=== PATIENT | female | born 1950 | race Hispanic/Latino ===

== ENCOUNTER 2018-01-29 14:23 | Emergency (ER) | payer OTHER ==
[2018-01-29 15:09] LABS: BASOPHILS % (AUTO) 0.2 % (0.0-5.0); EOSINOPHILS % (AUTO) 0.1 % (0.0-8.0); HEMATOCRIT 35.3 % (36-48); LYMPHOCYTES % (AUTO) 9.3 % (21.0-51.0); MEAN CORPUSCULAR HEMOGLOBIN 31.6 pg (27.0-33.0); MEAN CORPUSCULAR HGB CONC 34.7 g/dL (32.0-36.0); MEAN CORPUSCULAR VOLUME 91.2 fL (79-99); MONOCYTES % (AUTO) 4.2 % (3.0-13.0); NEUTROPHILS % (AUTO) 86.2 % (40.0-77.0); PLATELET COUNT (AUTO) 238 K/uL (130-400); RED BLOOD CELL COUNT(AUTO) 3.87 MIL/uL (4.00-5.50); RED CELL DISTRIBUTION WIDTH 13.8 % (11.0-15.5); WHITE BLOOD COUNT (AUTO) 19.1 K/uL (4.8-10.8)
[2018-01-29] MEDS ORDERED: SODIUM CHLORIDE 0.9% 1000ML 1,000 ML IV ONE (15:15)
[2018-01-29 15:23] LABS: CREATININE 1.1 mg/dL (0.5-1.5)
[2018-01-29 15:25] LABS: APPEARANCE,URINE SL CLOUDY (CLEAR); BILIRUBIN,URINE SMALL (NEGATIVE); COLOR,URINE YELLOW (YELLOW); GLUCOSE, URINE (UA) NEGATIVE (NEGATIVE); KETONES,URINE 15 mg/dL (NEGATIVE); LEUKOCYTE ESTERASE ,URINE NEGATIVE (NEGATIVE); NITRATE,URINE NEGATIVE (NEGATIVE); OCCULT BLOOD,URINE LARGE (NEGATIVE); PROTEIN,URINE 100 (NEGATIVE); UROBILINOGEN,URINE 0.2 mg/dL (0.2-1.0)
[2018-01-29] MEDS ORDERED: ONDANSETRON HCL 4 MG/2 ML VIAL ONE (15:27)
[2018-01-29 15:44] LABS: BACTERIA,URINE Few /HPF (None Seen); MUCUS,URINE Moderate LPF (None Seen); SQUAMOUS EPITHELIAL CELL,UR Few /HPF (0-2)
== END 2018-01-29 17:24 | disposition home or self-care (01) ==
LOC: EDH 14:23
DX: A08.4 Viral intestinal infection, unspecified (principal); E86.9 Volume depletion, unspecified; I10 Essential (primary) hypertension; Z85.3 Personal history of malignant neoplasm of breast; Z87.891 Personal history of nicotine dependence
CPT/HCPCS: 36415; 71046; 80048; 81001; 83605; 85025; 87804 ×2; 93005; 96361; 96374; 99285; J2405; J7030

== ENCOUNTER 2018-03-09 19:28 | Emergency (ER) | payer OTHER ==
[2018-03-09] MEDS ORDERED: ONDANSETRON ODT 4 MG TAB ONE (20:43)
[2018-03-09] MEDS ORDERED: MORPHINE SULFATE 4 MG/1ML SYG ONE (20:44)
== END 2018-03-09 21:50 | disposition home or self-care (01) ==
LOC: EDH 19:28
DX: F11.23 Opioid dependence with withdrawal (principal); F41.9 Anxiety disorder, unspecified; I10 Essential (primary) hypertension; Z72.0 Tobacco use; Z85.3 Personal history of malignant neoplasm of breast; Z88.8 Allergy status to other drugs, medicaments and biological substances
CPT/HCPCS: 96372; 99283; J2270

== ENCOUNTER 2018-07-22 23:05 | Emergency (ER) | payer OTHER, MEDICARE ==
[2018-07-23] MEDS ORDERED: METOCLOPRAMIDE 10 MG/2 ML VIAL ONE (00:38)
[2018-07-23] MEDS ORDERED: ONDANSETRON HCL 4 MG/2 ML VIAL ONE (00:39)
[2018-07-23] MEDS ORDERED: KETOROLAC TROMETHAMINE 30MG/ML ONE (00:39)
[2018-07-23] MEDS ORDERED: LIDOCAINE PF 2% 5ML ABBOJECT ONE (00:48)
[2018-07-23] MEDS ORDERED: DiphenhydrAMINE HCL 50 MG/ML VIAL ONE ×2 (01:32→02:47)
== END 2018-07-23 03:08 | disposition home or self-care (01) ==
LOC: EDH 23:05
DX: F11.10 Opioid abuse, uncomplicated (principal); E86.9 Volume depletion, unspecified; G89.29 Other chronic pain; R11.2 Nausea with vomiting, unspecified; I10 Essential (primary) hypertension; M79.7 Fibromyalgia; Z85.3 Personal history of malignant neoplasm of breast; Z88.8 Allergy status to other drugs, medicaments and biological substances; Z90.710 Acquired absence of both cervix and uterus; Z98.890 Other specified postprocedural states; Z72.0 Tobacco use
CPT/HCPCS: 96361; 96374; 96375; 96376; 99284; J1200 ×2; J1885; J2001; J2405; J2765

== ENCOUNTER → 2019-10-17 | Outpatient (CLI) | payer MEDICARE, OTHER | END | disposition home or self-care (01) | LOC: SHCH 15:18 | PROVIDERS: ATTEND Internal Medicine Cardiovascular Disease | DX: I10 Essential (primary) hypertension (principal); R07.9 Chest pain, unspecified | CPT/HCPCS: 93306; 93356 ==

== ENCOUNTER → 2019-10-23 | Outpatient (CLI) | payer OTHER ==
[~2019-10-23] VITALS: Ht 157.5 cm; Wt 93.9 kg
[~2019-10-23] MED LIST: REGADENOSON 0.4 MG/5 ML PF SYG IVP SCH
== END | disposition home or self-care (01) ==
LOC: SHCH 08:54
PROVIDERS: ATTEND Internal Medicine Cardiovascular Disease
DX: R07.9 Chest pain, unspecified (principal); I10 Essential (primary) hypertension
CPT/HCPCS: 78452; 93017; A9500 ×2; J2785; 96374

== ENCOUNTER 2022-11-18 00:39 | Emergency (ER) | payer OTHER ==
[~2022-11-18] VITALS: Ht 160 cm; Wt 89.4 kg
[~2022-11-18 00:39] MED LIST changes: +DULO30CA52 PO; +FERR-72 PO; +FOLI0.4T6 PO; +GABA300C PO; +HYDR12.54 PO; +LOSA-418 PO; +ONDA8TAB12 PO; +OXYC20TA41 PO; +PANT40TA PO; -REGADENOSON 0.4 MG/5 ML PF SYG IVP SCH
[2022-11-18 01:58] VITALS: BP 131/65; PULSE 78; RESP 16; O2SAT 98
[2022-11-18] MEDS ORDERED: OXYCODONE HCL 30 MG TABLET PO ONE (02:00)
[2022-11-18] MEDS ORDERED: OXYCODONE HCL 5 MG TAB ONE (02:06)
== END 2022-11-18 02:17 | disposition home or self-care (01) ==
LOC: EDH 00:39
DX: F11.23 Opioid dependence with withdrawal (principal); F41.9 Anxiety disorder, unspecified; F32.A Depression, unspecified; Z79.899 Other long term (current) drug therapy; Z85.3 Personal history of malignant neoplasm of breast

== ENCOUNTER → 2024-04-02 | Outpatient (CLI) | payer OTHER ==
[~2024-04-02] MED LIST changes: +ONDA-245 PO; -ONDA8TAB12 PO
--- NOTE | 2024-04-03 08:12 | HMCSR ---
APPROVED REPORT Bilateral Lower Extremity Venous Study for DVT., Venous Competence. Indications Lower Extremity Pain: , Lower Extremity Edema: , i87.1, i87.2 Vein Imaging CFV (R): Pulsatile flow, augmentation and compression. No evidence of DVT. 16.3mm 0.0ms of reflux. SFJ (R): Pulsatile flow, augmentation and compression. No evidence of DVT. FEM (R): Pulsatile flow, augmentation and compression. No evidence of DVT. POP (R): Pulsatile flow, augmentation and compression. No evidence of DVT. DFV (R): Pulsatile flow, augmentation and compression. No evidence of DVT. PTV (R): Normal flow, augmentation and compression. No evidence of DVT. Peroneals (R): Not VisualizedCFV (L): Pulsatile flow, augmentation and compression. No evidence of D VT. 12.6mm 0.0ms of reflux. SFJ (L): Pulsatile flow, augmentation and compression. No evidence of DVT. FEM (L): Pulsatile flow, augmentation and compression. No evidence of DVT. POP (L): Pulsatile flow, augmentation and compression. No evidence of DVT. DFV (L): Pulsatile flow, augmentation and compression. No evidence of DVT. PTV (L): Normal flow, augmentation and compression. No evidence of DVT. Peroneals (L): Not Visualized Technologist Impression Deep veins of the bilateral lower extremities appear patent and compressible without thrombus. Deep venous flow demonstrates pulsatile flow bilaterally. No evidence of deep venous reflux or superficial venous insufficiency. RGSV junction 6.7mm 0.0ms thigh 3.8mm 0.0ms knee 2.4mm 0.0ms calf 3.1mm 0.0ms RSSV prox 2.5mm 0.0ms mdi 2.8mm 0.0ms LGSV junction 7.2mm 0.0ms thigh 4.2mm 0.0ms knee 3.0mm 0.0ms calf 3.5mm 0.0ms LSSV prox 2.6mm 0.0ms mid 2.4mm 0.0ms Technically difficult study Conclusion As above. Conclusion As above.
--- NOTE | 2024-04-03 08:16 | HMCSR ---
APPROVED REPORT EXAM: Two-dimensional and M-mode echocardiogram with Doppler and color Doppler. INDICATION ICD: R06.00 Dyspnea 2D Dimensions RVDd4.4 cmLVEF(%)59.3 (>50%)LVED Vol(simp.)137.0 mL IVSd0.8 (0.7-1.1cm)FS(%)32 %LVES Vol(simp.)62.0 mL LVDd5.5 (3.8-5.6cm)Ao Root(2D)3.1 (2.0-3.7cm)LVEF(%, simp.)55 % PWd0.8 (0.7-1.1cm)LVOT diam2.3 (1.8-2.4cm)LA ESV INDEX (BP)39.81 mL/m2 LVDs3.8 (2.5-4.0cm)IVC diam2.3 cm Aortic Valve AoV Vmax2.2 m/Aminah Peak GR19.2 mmHgLVOT Vmax1.1 m/s AoV VTI0.5 mAo Mean GR11.5 mmHgLVOT VTI0.27 m GABBY (VMAX)2.5 cm2AVA (VTI) 2.5 cm2 Mitral Valve MV E Exqy851.7 cm/sDECEL Spyr083 ms MV A Rvnm106.7 cm/sP 1/2 T53 ms E/A ratio1.1MVA (PHT)4.1 cm2 MR Max PG104 mmHg TDI E/E' Kvynlu13.9E/E' Vqkskng67.0 Pulmonary Valve PV Vmax1.7 m/sPV VTI0.36 mPV Mean GR7 mmHg PV Peak GR10.9 mmHgPI End Carmen. Fabian 1.3 cm/s Tricuspid Valve TR Vmax3.3 m/sRAP (EST) 8 xxVkORUE40.7 mmHg TR Peak GR44.7 mmHg Left Ventricle Left ventricular cavity size is normal. There is normal LV segmental wall motion. There is normal lef t ventricular wall thickness. LVEF is 55-60%. Grade 2 diastolic dysfunction. Right Ventricle Right ventricle is within normal limits. The right ventricular systolic function is normal. Atria The left atrium is mildly dilated. The right atrium size is normal. Aortic Valve Aortic valve is trileaflet. The aortic valve is mildly thickened. No aortic regurgitation is present. There is mild valvular aortic stenosis.Calculated aortic valve area is 2.5 cm2 with maximum pressure gradient of 19.2 mmHg and mean pressure gradient of 11.5 mmHg. Mitral Valve Mitral valve leaflets are mildly sclerotic but opens well. Mitral annular calcification is mild. Mitr al regurgitation is trace to mild. There is no mitral valve stenosis. Tricuspid Valve The tricuspid valve is normal in structure and function. There is mild to moderate tricuspid regurgit ation. Right ventricular systolic pressure is estimated at 50-60 mmHg. There is moderate pulmonary hy pertension. Pulmonic Valve Pulmonic valve is not well visualized. There is no pulmonic valvular regurgitation. Great Vessels The aortic root is normal in size. IVC is dilated and collapses >50% with inspiration. Pericardium No pericardial effusion. Conclusion LVEF is 55-60%. Grade 2 diastolic dysfunction. Right ventricle is within normal limits. The right ventricular systolic function is normal. Aortic valve is trileaflet. The aortic valve is mildly thickened. There is mild valvular aortic stenosis.Calculated aortic valve area is 2.5 cm2 with maximum pressure gradient of 19.2 mmHg and mean pressure gradient of 11.5 mmHg. Mitral regurgitation is trace to mild. There is mild to moderate tricuspid regurgitation. Right ventricular systolic pressure is estimated at 50-60 mmHg. There is moderate pulmonary hypertension.
== END | disposition home or self-care (01) ==
LOC: SHCH 14:00
PROVIDERS: ATTEND Internal Medicine Cardiovascular Disease
DX: I08.3 Combined rheumatic disorders of mitral, aortic and tricuspid valves (principal); I72.8 Aneurysm of other specified arteries; I27.20 Pulmonary hypertension, unspecified; I87.2 Venous insufficiency (chronic) (peripheral); I87.1 Compression of vein; R06.00 Dyspnea, unspecified; R60.9 Edema, unspecified
CPT/HCPCS: 93306; 93970